=== PATIENT | male | born 1965 | race Caucasian/White ===

== ENCOUNTER 2025-01-31 01:47 | Observation (INO) | payer OTHER ==
[~2025-01-31] VITALS: Ht 170.2 cm; Wt 77.1 kg
[~2025-01-31 01:47] MED LIST: CYCL10 PO; HYDACE5 PO; ONDA4ODT MM; RXHYDACE PO; RXONDA4ODT MM
[2025-01-31 02:09] LABS: BASOPHILS ABSOLUTE AUTO 0.06 K/mm3 (0.00-0.23); BASOPHILS PERCENT AUTO 0 % (0-2); EOSINOPHILS PERCENT AUTO 0 % (0-6); Hematocrit 42.8 % (37.0-53.0); Hemoglobin 14.8 g/dL (13.5-17.5); IMMATURE GRAN ABSOLUTE AUTO 0.07 K/mm3 (0.00-0.10); IMMATURE GRAN PERCENT AUTO 0 % (0-1); LYMPHOCYTES ABSOLUTE AUTO 2.14 K/mm3 (0.84-5.20); LYMPHOCYTES PERCENT AUTO 13 % (21-46); MONOCYTES ABSOLUTE AUTO 1.27 K/mm3 (0.16-1.47); MONOCYTES PERCENT AUTO 7 % (4-13); Mean Corpuscular HGB 30.6 pg (26.0-34.0); Mean Corpuscular HGB Conc 34.6 g/dL (31.5-36.5); Mean Corpuscular Volume 89 fL (80-100); Mean Platelet Volume 9.5 fL (9.1-12.4); NEUTROPHILS ABSOLUTE AUTO 13.55 K/mm3 (1.96-9.15); NEUTROPHILS PERCENT AUTO 79 % (41-73); Platelet Count 368 K/mm3 (150-400); RDW Coefficient Variation 11.9 % (11.7-14.2); RDW Standard Deviation 38.5 fL (35.1-46.3); Red Blood Cell Count 4.83 M/mm3 (4.30-5.90); White Blood Cell Count 17.09 K/mm3 (4.00-11.30)
[2025-01-31 02:16] LABS: Alanine Aminotransfer (ALT/SGP 62 U/L (12-78); Albumin, Blood 4.3 g/dL (3.4-5.0); Albumin/Globulin Ratio 1.1 (0.8-1.8); Alk Phos 92 U/L (50-136); Anion Gap 13 mmol/L (3-11); Aspartate Aminotrans (AST/SGOT 59 U/L (12-37); Bilirubin, Total 0.6 mg/dL (0.1-1.0); Blood Urea Nitrogen 25 mg/dL (8-24); Bun/Creatinine Ratio 24.5 (12.0-20.0); CO2, Blood 18 mmol/L (21-32); Calcium, Blood 10.1 mg/dL (8.5-10.1); Chloride, Blood 109 mmol/L (98-108); Creatinine, Blood 1.02 mg/dL (0.60-1.20); Ethanol (Alcohol), Blood, Med <3 mg/dL; Globulin, Blood 3.9 g/dL (2.2-4.0); Glomerular Filtration Rate 84 (60-); Glucose, Blood 129 mg/dL (70-99); Potassium, Blood 4.1 mmol/L (3.5-5.5); Sodium, Blood 136 mmol/L (136-145); Total Protein, Blood 8.2 g/dL (6.4-8.2)
[2025-01-31] MEDS ORDERED: LORazepam 2 MG/ML 1ML Injection IV ONE ×2 (03:15→04:05)
[2025-01-31] MEDS ORDERED: NS 1,000 ML IV SCH (03:20)
[2025-01-31 03:40] LABS: International Normalized Ratio 1.09; Prothrombin Time Results 11.6 Sec (9.7-11.5)
[2025-01-31 03:45] LABS: Free Thyroxine 1.36 ng/dL (0.70-1.60); Thyroid Stimulating Hormone 0.927 uIU/mL (0.360-4.800)
[2025-01-31] MEDS ORDERED: DEXTROSE 5% IV ONE (04:20)
[2025-01-31] MEDS ORDERED: ACYCLOVIR SODIUM IV ONE (04:20)
[2025-01-31] MEDS ORDERED: Vancomycin HCL 2,000 MG in NS 520 ML IV ONE (04:20)
[2025-01-31] MEDS ORDERED: CefTRIAXone Sodium 2,000 MG in NS 100 ML IV ONE (04:20)
[2025-01-31 04:41] LABS: Source, Urine Clean Catch
[2025-01-31 04:46] LABS: Bilirubin, Urine Neg (Neg); Blood, Urine Neg (Neg); Glucose Qualitative, Urine Neg (Neg); Ketones, Urine 3+ (Neg); Leukocyte Esterase, Urine Neg (Neg); Nitrite, Urine Neg (Neg); Protein, Urine 1+ (Neg); Urobilinogen, Urine NORM (Normal)
[2025-01-31 04:56] LABS: Appearance, Urine Clear (Clear); Color, Urine Yellow (P-Yellow)
[2025-01-31 04:57] LABS: U Amphetamine Screen Not Detected; U Barbituate Screen Not Detected; U Benzodiazapine Screen Not Detected; U Buprenorphine Screen Not Detected; U Cannabinoids Screen Not Detected; U Cocaine Screen Not Detected; U Methadone Screen Not Detected; U Methamphetamine Screen Not Detected; U Opiates Screen Not Detected; U Oxycodone Screen Not Detected; U Phencyclidine Screen Not Detected
[2025-01-31] MEDS ORDERED: Acetaminophen 325 MG TABLET PO PRN (05:35)
[2025-01-31] MEDS ORDERED: ACYCLOVIR IV SCH (05:46)
[2025-01-31] MEDS ORDERED: DEXTROSE 5% IV SCH (05:46)
[2025-01-31] MEDS ORDERED: Lactated Ringer's 1,000 ML IV ONE (09:00)
[2025-01-31 09:03] LABS: Base Excess Venous -0.8 mmol/L; Bicarbonate Venous 23.3 mmol/L (24.0-30.0); PCO2 Venous 43.4 mmHg (38-42); pH Blood Venous 7.36 (7.34-7.37)
[2025-01-31 09:19] LABS: International Normalized Ratio 1.12; Prothrombin Time Results 11.9 Sec (9.7-11.5)
[2025-01-31 09:42] LABS: Beta-hydroxybutyrate 1.4 mg/dL (0.2-2.8); Ethanol (Alcohol), Blood, Med <3 mg/dL; Ferritin, Serum 492 ng/mL (26-388); Iron Serum 32 ug/dL (65-175); Magnesium, Blood 2.3 mg/dL (1.6-2.4); Percent Saturation 10.8 % (20.0-50.0); Total Iron Binding Capacity 295 ug/dL (250-450)
[2025-01-31 10:12] LABS: Anion Gap 10 mmol/L (3-11); Blood Urea Nitrogen 23 mg/dL (8-24); Bun/Creatinine Ratio 24.1 (12.0-20.0); CO2, Blood 26 mmol/L (21-32); Calcium, Blood 9.1 mg/dL (8.5-10.1); Chloride, Blood 109 mmol/L (98-108); Creatinine, Blood 0.96 mg/dL (0.60-1.20); Glomerular Filtration Rate 90 (60-); Glucose, Blood 108 mg/dL (70-99); Phosphorus, Blood 3.4 mg/dL (2.5-4.9); Potassium, Blood 4.3 mmol/L (3.5-5.5); Sodium, Blood 141 mmol/L (136-145)
[2025-01-31 12:00] LABS: Osmolality, Serum 300 mos/KG (275-300)
[2025-01-31 18:14] VITALS: BP 131/85
[2025-01-31 18:20] LABS: Appearance, CSF Clear (Clear); Color, CSF No Color (No Color); RBC Count, CSF 36 /mm3 (0-0); WBC Count, CSF 0 /mm3 (0-5)
[2025-01-31] MEDS ORDERED: XANAX0.25 MG PO (18:22)
--- NOTE | 2025-01-31 18:34 | NUR ---
RECIEVED AND ORIENTED TO [facility]
[2025-01-31 18:37] LABS: Appearance, CSF Clear (Clear); Color, CSF No Color (No Color)
[2025-01-31 18:38] LABS: RBC Count, CSF 0 /mm3 (0-0); WBC Count, CSF 0 /mm3 (0-5)
[2025-01-31 19:11] VITALS: BP 135/82
[2025-01-31 19:12] LABS: Cryptococcus Neoformans/Gattii Not Detected (NOT DETECT); Enterovirus Not Detected (NOT DETECT); Escherichia Coli K1 Not Detected (NOT DETECT); Haemophilus Influenza Not Detected (NOT DETECT); Herpes Simplex Virus 1 Not Detected (NOT DETECT); Herpes Simplex Virus 2 Not Detected (NOT DETECT); Human Herpesvirus 6 Not Detected (NOT DETECT); Human Parechovirus Not Detected (NOT DETECT); Listeria Monocytogenes Not Detected (NOT DETECT); Neisseria Meningitidis Not Detected (NOT DETECT); Streptococcus Agalactiae Not Detected (NOT DETECT); Streptococcus Pneumoniae Not Detected (NOT DETECT); Varicella Zoster Virus Not Detected (NOT DETECT)
[2025-02-01 04:40] VITALS: BP 144/82
[2025-02-01 05:10] LABS: BASOPHILS ABSOLUTE AUTO 0.05 K/mm3 (0.00-0.23); BASOPHILS PERCENT AUTO 1 % (0-2); EOSINOPHILS ABSOLUTE AUTO 0.11 K/mm3 (0.00-0.68); EOSINOPHILS PERCENT AUTO 1 % (0-6); Hematocrit 35.6 % (37.0-53.0); Hemoglobin 12.3 g/dL (13.5-17.5); IMMATURE GRAN ABSOLUTE AUTO 0.03 K/mm3 (0.00-0.10); IMMATURE GRAN PERCENT AUTO 0 % (0-1); LYMPHOCYTES ABSOLUTE AUTO 2.49 K/mm3 (0.84-5.20); LYMPHOCYTES PERCENT AUTO 27 % (21-46); MONOCYTES ABSOLUTE AUTO 0.84 K/mm3 (0.16-1.47); MONOCYTES PERCENT AUTO 9 % (4-13); Mean Corpuscular HGB 30.6 pg (26.0-34.0); Mean Corpuscular HGB Conc 34.6 g/dL (31.5-36.5); Mean Corpuscular Volume 89 fL (80-100); Mean Platelet Volume 9.7 fL (9.1-12.4); NEUTROPHILS PERCENT AUTO 62 % (41-73); Platelet Count 270 K/mm3 (150-400); RDW Standard Deviation 39.1 fL (35.1-46.3); Red Blood Cell Count 4.02 M/mm3 (4.30-5.90); White Blood Cell Count 9.22 K/mm3 (4.00-11.30)
[2025-02-01 05:42] LABS: Bun/Creatinine Ratio 23.7 (12.0-20.0); Calcium, Blood 8.7 mg/dL (8.5-10.1); Creatinine, Blood 0.84 mg/dL (0.60-1.20)
--- NOTE | 2025-02-01 06:35 | NUR ---
SHIFT SUMMARY PT IS ALERT AND ORIENTED TIMES 4. PT ADMITTED FOR ENCEPHALOPATHY. PT WAS SI IN ER BUT THAT ORDER IS DC D. PT IS COOPERATIVE WITH CARE AND ABLE TO MAKE NEEDS KNOWN. PT HAS BED IN LOW POSITION, CALL LIGHT WITHIN REACH, RAILS TIMES 2.
[2025-02-01 07:53] VITALS: BP 145/82
[2025-02-01 15:08] VITALS: BP 133/78
[2025-02-01] MEDS ORDERED: HYDHCL25 PO (17:34)
[2025-02-01 22:29] LABS: LACTATE DEHYDROGENASE TOTAL,BF 19 U/L; LDH FLUID SOURCE CSF
== END 2025-02-01 18:29 | disposition home or self-care (01) ==
LOC: ER 01:47 → MEDS 01:48 → ERHOLD 01:48 → MEDS 18:04
PROVIDERS: Family Medicine; Student in an Organized Health Care Education/Training Program; ADMIT Student in an Organized Health Care Education/Training Program
DX: G93.40 Encephalopathy, unspecified (principal); R63.4 Abnormal weight loss; E78.5 Hyperlipidemia, unspecified; Z79.899 Other long term (current) drug therapy
CPT/HCPCS: 36415; 70450; 71045; 80048; 80053; 80320; 82010; 82140; 82607; 82728; 82746; 82803; 82945; 82947; 83540; 83550; 83605; 83615; 83735; 83880; 83930; 84100; 84157; 84439; 84443; 85025; 85610; 85730; 87040; 87070; 87205; 87252; 87483; 89051; 93005; 93010; 96361; 96365; 96366; 96367; 96368; 96375; 97162; 97165; 97530; 99285-25; G0378; J0133; J0696; J2060; J3370; J7030; J7040; J7060; J7120; J8499